=== PATIENT | male | born 1940 | race African-American/Black ===

== ENCOUNTER → 2018-02-18 | Outpatient (CLI) | payer MEDICARE ==
[2018-02-18] MEDS: REGADENOSON 0.4 MG/5 ML DISP.SYRIN. IV (12:14)
== END | disposition home or self-care (01) ==
LOC: ECHO 08:51
DX: I08.8 Other rheumatic multiple valve diseases (principal); I27.20 Pulmonary hypertension, unspecified
CPT/HCPCS: 78452; 93017; 93306; 96374; 96375; 96376; A9500; J2785

== ENCOUNTER → 2019-02-19 | Outpatient (CLI) | payer MEDICARE ==
--- NOTE | 2019-02-19 12:36 | CARD ---
MR#: [id number] Date of Study: 02/19/2019 Ordering Physician: CLAUDIA STEVENS, Referring Physician: CLAUDIA STEVENS, Tech: Abi Zavala APPROVED REPORT EXAM: Two-dimensional and M-mode echocardiogram with Doppler and color Doppler. Other Information Quality : AverageHR: 69bpm INDICATION Hypertension/HCVD 2D DIMENSIONS RVDd3.2 (2.9-3.5cm)Left Atrium(2D)3.9 (1.6-4.0cm) IVSd1.0 (0.7-1.1cm)Aortic Root(2D)3.0 (2.0-3.7cm) LVDd5.2 (3.9-5.9cm)LVOT Diameter2.0 (1.8-2.4cm) PWd1.2 (0.7-1.1cm)LVDs3.5 (2.5-4.0cm) FS (%) 32.8 %SV79.9 ml LVEF(%)60.8 (>50%) Aortic Valve AoV Peak Brian.136.0cm/sAoV VTI28.6cm AO Peak GR.7.4mmHgLVOT Peak Brian.93.7cm/s LVOT VTI 18.44cmAO Mean GR.4mmHg BERENICE (VMAX)1.89wi5NPX (VTI)2.07cm2 Mitral Valve MV E Ilnfjdqd80.2cm/sMV E Peak Gr.120mmHg MV DECEL [id number] A Hbgabkxx79.5cm/s MV E Mean Gr.2mmHgMV YNG77ec E/A Ratio1.1MVA (PHT)4.29cm2 TDI E/Lateral E'7.4E/Medial E'9.7 Pulmonary Valve PV Peak Eqsnemeq03.9cm/sPV Peak Grad.3mmHg Tricuspid Valve TR P. Ewqlzrgz551bt/sRAP GPPCTXZF7nfYu TR Peak Gr.45keOgZWQF76miPe Pulmonary Vein S1 Anagytuy02.5cm/sD2 Kdgkokgi74.1cm/s PVa xcbnptxr188nufd LEFT VENTRICLE The left ventricle is normal size. There is mild concentric left ventricular hypertrophy. The left ve ntricular systolic function is low normal. The Ejection Fraction is 50%. RIGHT VENTRICLE The right ventricle is normal size. There is normal right ventricular wall thickness. The right ventr icular systolic function is normal. ATRIA The left atrium size is normal. The right atrium is borderline dilated. The interatrial septum is int act with no evidence for an atrial septal defect or patent foramen ovale as noted on 2-D or Doppler i maging. AORTIC VALVE The aortic valve is normal in structure and function. Doppler and Color Flow revealed no significant aortic regurgitation. There is no significant aortic valvular stenosis. MITRAL VALVE The mitral valve is normal in structure and function. There is no evidence of mitral valve prolapse. There is no mitral valve stenosis. Doppler and Color-flow revealed mild mitral regurgitation. TRICUSPID VALVE The tricuspid valve is normal in structure and function. Doppler and Color Flow revealed trace tricus pid regurgitation with an estimated PAP of 40 mmHg. There is mild pulmonary hypertension. There is no tricuspid valve prolapse or vegetation. There is no tricuspid valve stenosis. PULMONIC VALVE The pulmonary valve is normal in structure and function. Doppler and Color Flow revealed trace to mil d pulmonic valvular regurgitation. GREAT VESSELS The aortic root is normal in size. The IVC is normal in size and collapses >50% with inspiration. PERICARDIAL EFFUSION There is no evidence of significant pericardial effusion. Critical Notification Critical Value: No <Conclusion> The left ventricular systolic function is low normal. The Ejection Fraction is 50%. Mild mitral regurgitation. Trace tricuspid regurgitation with an estimated PAP of 40 mmHg. There is no evidence of significant pericardial effusion. Signed by : Claudia Stevens, Electronically Approved : 02/19/2019 12:36:02
== END | disposition home or self-care (01) ==
LOC: ECHO 09:56
PROVIDERS: ATTEND Internal Medicine Cardiovascular Disease
DX: I08.8 Other rheumatic multiple valve diseases (principal); I11.9 Hypertensive heart disease without heart failure; I27.20 Pulmonary hypertension, unspecified
CPT/HCPCS: 93306

== ENCOUNTER → 2020-03-29 | Outpatient (CLI) | payer MEDICARE ==
--- NOTE | 2020-03-29 16:45 | CARD ---
MR#: [id number] Date of Study: 03/29/2020 Ordering Physician: CLAUDIA BRANCH, Referring Physician: CLAUDIA BRACNH Tech: Nancy Marion RDCS APPROVED REPORT EXAM: Two-dimensional and M-mode echocardiogram with Doppler and color Doppler. Other Information Quality : Good INDICATION Hypertension/HCVD 2D DIMENSIONS RVDd2.8 (2.9-3.5cm)Left Atrium(2D)4.5 (1.6-4.0cm) IVSd1.0 (0.7-1.1cm)Aortic Root(2D)3.0 (2.0-3.7cm) LVDd5.9 (3.9-5.9cm)LVOT Diameter2.4 (1.8-2.4cm) PWd1.0 (0.7-1.1cm)LVDs4.1 (2.5-4.0cm) FS (%) 30.9 %SV100.4 ml LVEF(%)57.7 (>50%) Aortic Valve AoV Peak Brian.142.0cm/sAoV VTI30.1cm AO Peak GR.8.1mmHgLVOT Peak Brian.98.9cm/s AO Mean GR.4mmHgAVA (VMAX)3.05cm2 BERENICE (VTI)3.20cm2 Mitral Valve MV E Pvzffxxn62.6cm/sMV DECEL HEUG003jw MV A Ssbphqqf61.3cm/sE/A Ratio0.8 Tricuspid Valve TR P. Twidqicd931ya/sRAP NUABKAIE8yiDk TR Peak Gr.85beHjZDPC34rbTd Pulmonary Vein S1 Oollujpo91.6cm/sD2 Lhkbxjfk24.0cm/s LEFT VENTRICLE The left ventricle is normal size. There is normal left ventricular wall thickness. The left ventricu lar systolic function is normal and the ejection fraction is within normal range. The Ejection Fracti on is 55-60%. There is normal LV segmental wall motion. Transmitral Doppler flow pattern is Grade I-a bnormal relaxation pattern. RIGHT VENTRICLE The right ventricle is normal size. The right ventricular systolic function is normal. ATRIA The left atrium is mildly dilated. The right atrium is mildly dilated. The interatrial septum is inta ct with no evidence for an atrial septal defect or patent foramen ovale as noted on 2-D or Doppler im aging. AORTIC VALVE The aortic valve is calcified but opens well. Doppler and Color Flow revealed no significant aortic r egurgitation. There is no significant aortic valvular stenosis. MITRAL VALVE The mitral valve is calcified but opens well. There is no evidence of mitral valve prolapse. There is no mitral valve stenosis. Doppler and Color-flow revealed mild mitral regurgitation. TRICUSPID VALVE The tricuspid valve is normal in structure and function. Doppler and Color Flow revealed mild tricusp id regurgitation. The PA pressure was estimated at 50 mmHg. There is no tricuspid valve stenosis. PULMONIC VALVE The pulmonic valve is not well visualized. Doppler and Color Flow revealed mild pulmonic valvular reg urgitation. There is no pulmonic valvular stenosis. GREAT VESSELS The aortic root is normal in size. The ascending aorta is normal in size. The IVC is normal in size a nd collapses >50% with inspiration. PERICARDIAL EFFUSION There is no evidence of significant pericardial effusion. Critical Notification Critical Value: No <Conclusion> The left ventricle is normal size. The left ventricular systolic function is normal and the ejection fraction is within normal range. The Ejection Fraction is 55-60%. Doppler and Color Flow revealed no significant aortic regurgitation. There is no significant aortic valvular stenosis. Doppler and Color-flow revealed mild mitral regurgitation. Doppler and Color Flow revealed mild tricuspid regurgitation. The PA pressure was estimated at 50 mmHg. Signed by : Ran Fritz MD Electronically Approved : 03/29/2020 16:44:37
== END | disposition home or self-care (01) ==
LOC: ECHO 09:57
PROVIDERS: ATTEND Internal Medicine Cardiovascular Disease
DX: I08.8 Other rheumatic multiple valve diseases (principal); I10 Essential (primary) hypertension
CPT/HCPCS: 93306

== ENCOUNTER → 2021-01-26 | Day surgery (SDC) | payer MEDICARE, MEDICAID ==
[~2021-01-26] VITALS: Ht 172.7 cm; Wt 80.0 kg
[~2021-01-26] MED LIST: APIX5TAB PO; CARV25TA2 PO; FAMO40TA4 PO; FURO20TA3 PO; HYDR100T33 PO; IV RINGERS,LACTATED 1000ML 1,000 ML IV ONE; LIDOCAINE 2% PF 5 ML VIAL. ONE; OMEP40CA7 PO; PROPOFOL 10 MG/ML (20ML) VIAL. IV ONE; VALS160T3 PO
[2021-01-26 08:37] VITALS: BP 200/93
[2021-01-26 09:50] VITALS: BP 159/76
--- NOTE | 2021-01-27 00:18 | HP ---
ADMIT DATE: 01/26/2021 REASON FOR ADMISSION: Persistent heartburn and throat pain. HISTORY OF PRESENT ILLNESS: An 80-year-old -[place] male who has past medical history significant for hypertension as well as macular degeneration, gastroesophageal reflux disease, essential thrombocytosis, is seen with epigastric and chest discomfort, does not include weight loss or difficulty in swallowing. He has had improvement in his cough since stopping the RODY inhibitor. He does have intermittent reflux symptoms with continued issues. He requests additional evaluation. PAST MEDICAL HISTORY: Macular degeneration, hypertension, GERD. ALLERGIES: None. MEDICATIONS: Include Eliquis, carvedilol, famotidine, furosemide, ____, omeprazole and Diovan. FAMILY AND SOCIAL HISTORY: Significant for stomach cancer with his mother and NC with his mother, hypertension in mother. Father had cancer of the mouth. PAST SURGICAL HISTORY: Eye surgery, knee surgery, back surgery. REVIEW OF SYSTEMS: Per records. PHYSICAL EXAMINATION: GENERAL: Reveals a well-nourished, well-developed -[place] male. VITAL SIGNS: Temperature 97.7, pulse 83, respiratory rate 20. LUNGS: Clear. CARDIOVASCULAR: Reveals an S1, S2, without S3, S4 or appreciable murmur. ABDOMEN: Soft abdomen, normal bowel sounds. No appreciable hepatosplenomegaly. IMPRESSION: Heartburn with throat pain. Differential includes achalasia, Mondragon's, malignancy of the head and neck, Zenker's diverticulum, extrinsic compression of the esophagus; therefore, I will recommend upper endoscopy to further assess if this is nonrevealing on esophagram and CT of the neck would be pursued and chest. GLEN/JELANI MCGOWAN: Amor TID: [id number]
--- NOTE | 2021-01-27 12:07 | PATHOLOGY ---
[facility] Accession Number: [id number] . 01 Material submitted: . esophagus - DISTAL ESOPHAGUS BIOPSY. Modifiers: distal . 01 Clinical history: . GERD EGD . 02 Diagnosis: Esophageal biopsy, distal esophagus: - Reflux esophagitis. (JPM:carlos; 01/27/2021) S 01/27/2021 0909 Local . 02 Comment: Sections of the distal esophageal biopsy reveal segments of tangentially oriented, hyperplastic squamous esophageal mucosa. The findings are consistent with reflux esophagitis. There is no evidence of Mondragon's change, dysplasia, or malignancy. (JPM:carlos; 01/27/2021) . 02 Electronically signed: . Heath Alicia MD, Pathologist NPI- [id number] . 01 Gross description: . Received in formalin labeled "Domenico Fritz and distal esophagus biopsy". Received are multiple hassan-rios soft tissue fragments ranging from 0.1-0.3 cm. The specimen is entirely submitted in cassette A1.([facility]; 01/26/2021) [facility] 01/27/2021 0906 Local . 02 Pathologist provided ICD-10: K21.00 . 02 CPT . 065809 Specimen Comment: A courtesy copy of this report has been sent to [phone], [phone] Specimen Comment: [id number] Specimen Comment: Report sent to / DR WRIGHT Performed at: 01 [facility] [address], [place] [id number] MD Keenan Corona MD Phone: [phone] Performed at: 02 [facility] [address], [place] [id number] MD Heath Alicia MD Phone: [phone]
== END | disposition home or self-care (01) ==
LOC: ENDOS 08:07
PROVIDERS: ATTEND Internal Medicine Gastroenterology
DX: R12 Heartburn (principal); K21.00 Gastro-esophageal reflux disease with esophagitis, without bleeding; K31.89 Other diseases of stomach and duodenum; K22.5 Diverticulum of esophagus, acquired; K22.2 Esophageal obstruction; R07.0 Pain in throat; I10 Essential (primary) hypertension; M19.90 Unspecified osteoarthritis, unspecified site; E78.5 Hyperlipidemia, unspecified; H35.30 Unspecified macular degeneration; Z82.49 Family history of ischemic heart disease and other diseases of the circulatory system; Z79.899 Other long term (current) drug therapy; Z98.890 Other specified postprocedural states
CPT/HCPCS: 43239; 88305; J2704

== ENCOUNTER → 2021-01-31 | Outpatient (CLI) | payer MEDICARE ==
[2021-01-26 09:50] VITALS: BP 159/76
[~2021-01-31] MED LIST changes: -IV RINGERS,LACTATED 1000ML 1,000 ML IV ONE; -LIDOCAINE 2% PF 5 ML VIAL. ONE; -PROPOFOL 10 MG/ML (20ML) VIAL. IV ONE
--- NOTE | 2021-01-31 12:32 | RAD ---
XR CHEST 2V History: Reason: SOA. LUNG MASS. PE. COUGH. / Comparison: None. Findings: The cardiomediastinal silhouette is normal. Pulmonary vasculature is normal. There is mild right basi lar airspace disease, may be atelectasis or early infiltrate or scarring. No pleural effusion or pneu mothorax is seen. There is no acute bone abnormality. There is degenerative endplate spurring of the thoracic spine. IMPRESSION: Mild right basilar airspace disease. Electronically signed by: Serafin Oliva MD (01/31/2021 12:30 PM) [facility]
== END ==
LOC: RAD 09:27
PROVIDERS: ATTEND Internal Medicine Pulmonary Disease
DX: J98.9 Respiratory disorder, unspecified (principal); M46.04 Spinal enthesopathy, thoracic region; Z86.711 Personal history of pulmonary embolism
CPT/HCPCS: 71046

== ENCOUNTER → 2021-02-08 | Outpatient (CLI) | payer MEDICARE ==
[2021-01-26 09:50] VITALS: BP 159/76
[~2021-02-08] MED LIST changes: +IOHEXOL 300 MG/ML 100ML VIAL. IV ONE
[2021-02-08 09:34] LABS: CREATININE 0.9 mg/dL (0.7-1.3); GFR 97.8
--- NOTE | 2021-02-08 11:59 | RAD ---
PQRS Compliance Statement: One or more of the following individualized dose reduction techniques were utilized for this examinat ion: 1. Automated exposure control 2. Adjustment of the mA and/or kV according to patient size 3. Use of iterative reconstruction technique CT NECK CHEST W/CONT 02/08/2021 9:06 AM Indication: Throat hoarseness, belching and heartburn COMPARISON: None available. TECHNIQUE: Multiple axial CT images of the neck and chest were obtained after the intravenous adminis tration of 75 cc Omnipaque 300. Coronal and sagittal reformats are provided. FINDINGS: NECK: No suspicious enhancement identified within the visualized portions of the posterior fossa and brain parenchyma. Orbits are normal in appearance with exception of bilateral lens replacement. Paran erika sinuses are well aerated. Stock Lifter spaces normal in appearance. Oral cavity, floor of mouth an d sublingual space are normal. Submandibular glands are normal in appearance. Parotid glands are norm al in appearance. Vascular spaces are intact with mild calcified and noncalcified atheromatous plaque at the carotid bifurcations, right greater than left. Parapharyngeal fat is preserved. No retropharyngeal lymphadenopathy. Nasopharynx including the fossa Rosenmuller is normal in appearance. Oropharynx, hypopharynx, pharynx and trachea are normal. Larynge al cartilages are intact. Multiple subcentimeter thyroid nodules are present. There is a 1.9 cm right thyroid nodule in the mid right thyroid lobe. No pathologically enlarged cervical lymph nodes are id entified. There is moderate cervical spondylosis centered at C5-C6 and C6-C7. Minimal anterolisthesis of C7 on T1. There is at least mild spinal canal stenosis at C5-C6 secondary to posterior disc osteo phyte complex. No prevertebral edema. Temporomandibular joints are well aligned. Skull base is intact . Remaining dentition appear intact. CHEST: There is a subsolid triangular opacity at the right lung apex measuring up to 1.9 x 0.7 cm suggestive of pleural parenchymal scarring. Subpleural interstitial changes are identified with lower lung zone predominance. No honeycombing or traction bronchiectasis. There are no pleural effusions, pulmonary vascular congestion or pneumothorax. Central airways are clear. No significant lymphadenopathy involv ing the tracheoesophageal groove. No AP window lymphadenopathy. No pathologically enlarged mediastina l or hilar lymphadenopathy. Chest wall is intact. Heart size is enlarged. Thoracic aorta is normal in course and caliber. Mild calcified and noncalcified atheromatous plaque. No pericardial effusion. Th ere is an indeterminate hypoattenuating lesion within the medial segment left hepatic lobe measuring 8.5 mm (series 4, image 44), 31 Hounsfield units. Gallbladder present. Adrenal glands normal. No susp icious pancreatic lesion. Mild thoracic spondylosis without significant osseous neuroforaminal or spi nal canal stenosis. IMPRESSION: 1. No pathologically enlarged cervical or thoracic lymphadenopathy, especially along the course of th e recurrent laryngeal nerve. 2. No suspicious laryngeal mass. 3. Wedge-shaped consolidative change at the right lung apex favors pleural parenchymal scarring. 3 mo nth follow-up chest CT could be of benefit to assess stability. 4. Subpleural reticular interstitial changes with lower lung zone predominance could be seen with int erstitial lung disease. However findings do not correspond with a specific subtype of interstitial manda ng disease. Chronic interstitial edema is a differential consideration. 5. Cardiomegaly. Electronically signed by: Kia Yan MD (02/08/2021 11:57 AM) [facility]
== END ==
LOC: CT 09:06
PROVIDERS: ATTEND Internal Medicine Gastroenterology
DX: E04.2 Nontoxic multinodular goiter (principal); I70.0 Atherosclerosis of aorta; M47.813 Spondylosis without myelopathy or radiculopathy, cervicothoracic region; R12 Heartburn; M48.02 Spinal stenosis, cervical region; M25.78 Osteophyte, vertebrae; I51.7 Cardiomegaly; R14.2 Eructation; R49.0 Dysphonia
CPT/HCPCS: 36415; 70491; 71260; 82565; 84520; Q9967

== ENCOUNTER → 2021-02-08 | Outpatient (CLI) | payer MEDICARE ==
[2021-01-26 09:50] VITALS: BP 159/76
[~2021-02-08] MED LIST changes: -IOHEXOL 300 MG/ML 100ML VIAL. IV ONE
== END ==
LOC: LAB 08:44
PROVIDERS: ATTEND Internal Medicine Pulmonary Disease
DX: R06.02 Shortness of breath (principal)
CPT/HCPCS: 36415; 83880